=== PATIENT | male | born 1990 | race Caucasian/White ===

== ENCOUNTER 2022-09-25 22:05 | Emergency (ER) | payer SELFPAY ==
[~2022-09-25] VITALS: Ht 193 cm; Wt 90.7 kg
--- NOTE | 2022-09-25 22:07 | NUR ---
PT OFFLOADED TO [facility]
[2022-09-25 22:08] VITALS: BP 139/73
--- NOTE | 2022-09-26 00:16 | NUR ---
PT TO BED 7
--- NOTE | 2022-09-26 00:29 | NUR ---
32YR OLD MALE BIB SELF C/O COUGH XTODAY. DENIES V/D FEVER. IS SOB . SP02 98% RA. RESP EVEN AND UNLABORED. SKIN WARM AND DRY. ON BEDSIDE MONITOR. PT STATES COUGHING UP YELLOW GREEN MUCUS. HOB ELEVATED. BED AT LOWEST POSITION. NKDA
--- NOTE | 2022-09-26 01:12 | NUR ---
Patient being evaluated by physician at bedside.
--- NOTE | 2022-09-26 01:30 | NUR ---
XRAY AT BEDSIDE
[2022-09-26] MEDS ORDERED: ALBU0.0912 IH (02:08)
[2022-09-26] MEDS ORDERED: ACETAMINOPHEN EXTRA STRENGTH 500 MG TAB PO ONE (02:15)
--- NOTE | 2022-09-26 02:19 | NUR ---
FLU SWAB COLLECTED AND SENT TO LAB
--- NOTE | 2022-09-26 03:26 | NUR ---
PENDING RESULTS ON FLU SWAB
--- NOTE | 2022-09-26 03:35 | NUR ---
Patient discharged with v/s stable. Written and verbal after care instructions given and explained. Patient alert, oriented and verbalized understanding of instructions. Ambulatory with steady gait. All questions addressed prior to discharge. ID band removed. Patient advised to follow up with PMD. Rx of PROVENTIL HFA given.
== END 2022-09-26 03:35 | disposition home or self-care (01) ==
LOC: MED 22:05
DX: B34.9 Viral infection, unspecified (principal)
CPT/HCPCS: 71045; 87804; 99284; Q0092